=== PATIENT | male | born 1950 | race Caucasian/White ===

== ENCOUNTER 2018-02-11 08:48 | Inpatient (IN) | payer MEDICARE, OTHER ==
[~2018-02-11] VITALS: Ht 177.8 cm; Wt 93.7 kg
[2018-02-17] VITALS (13 sets, daily range): BP systolic 105–141; BP diastolic 54–80; PULSE 56–80; TEMP 97.3–98.2
[2018-02-18 04:23] VITALS: BP 118/60; PULSE 75; TEMP 98.3
[2018-02-18 08:39] VITALS: BP 115/62; PULSE 66; TEMP 98
[2018-02-18 12:27] VITALS: BP 123/63; PULSE 64; TEMP 97.6
[2018-02-18 15:29] VITALS: BP 125/52; PULSE 81; TEMP 98.1
[2018-02-18 20:31] VITALS: BP 136/68; PULSE 86; TEMP 98.3
[2018-02-19 04:24] VITALS: BP 131/68; PULSE 86; TEMP 98.7
[2018-02-19 08:30] VITALS: BP 139/85; PULSE 76; TEMP 97.7
[2018-02-19 12:01] VITALS: BP 141/72; PULSE 73; TEMP 97.8
== END 2018-02-19 15:25 | disposition home or self-care (01) | DRG 708 ==
LOC: INPTSU 02-17 05:36 → SURG 02-17 07:30
PROVIDERS: Urology
PROC: 0VT00ZZ Resection of Prostate, Open Approach (ICD-10-PCS; principal; 2018-02-17 07:30)
DX: C61 Malignant neoplasm of prostate (principal)
CPT/HCPCS: J0330; J0690; J1100; J2250; J2370; J2405; J2704; J2710; J3010; J3480; J7120

== ENCOUNTER 2019-11-01 18:25 | Emergency (ER) | payer MEDICARE, OTHER ==
[~2019-11-01] VITALS: Ht 177.8 cm; Wt 90.9 kg
[2019-11-01 20:07] VITALS: BP 142/75; PULSE 76; TEMP 98
== END 2019-11-01 20:10 | disposition home or self-care (01) ==
LOC: COL.ER 18:25
DX: S06.0X0A Concussion without loss of consciousness, initial encounter (principal); S16.1XXA Strain of muscle, fascia and tendon at neck level, initial encounter; W55.22XA Struck by cow, initial encounter; W19.XXXA Unspecified fall, initial encounter; Y92.71 Barn as the place of occurrence of the external cause